=== PATIENT | female | born 1995 | race Caucasian/White ===

== ENCOUNTER → 2020-01-21 | Outpatient (CLI) | payer BC | LOC: ZCOL.LAB 07:21 | DX: J02.9 Acute pharyngitis, unspecified (principal); Z20.828 Contact with and (suspected) exposure to other viral communicable diseases ==

== ENCOUNTER 2023-07-14 17:00 | Inpatient (IN) | payer BC ==
[~2023-07-14] VITALS: Ht 160.1 cm; Wt 94.1 kg
[2023-07-14] VITALS (22 sets, daily range): BP systolic 91–136; BP diastolic 52–80; PULSE 58–104; TEMP 98.4
[2023-07-14] MEDS ORDERED: PRENATAL TABLET PO (17:22)
[2023-07-14] MEDS ORDERED: LEXAPRO 10MG10 MG PO (17:22)
[2023-07-14] MEDS ORDERED: KEPPRA750 MG PO (17:22)
--- NOTE | 2023-07-14 17:30 | NUR ---
PT AMBULATED ONTO THE UNIT WITH SPOUSE FOR LABOR CHECK.PT REPORTS CONTRACTIONS EVERY 3-5 MINUTES.PT DENIES LOF/VB.PT REPORTS POSITIVE MOVEMENT.POC REVIEWED WITH PT AND PT VERBALIZES UNDERSTANDING.
[2023-07-14 19:09] LABS: BASO % 0.4 % (0.0-2.0); EOS # 0.1 K/mm3 (0.0-0.7); EOS % 0.6 % (0.0-4.0); GRAN % 72.7 % (42.2-75.2); HEMOGLOBIN 11.7 g/dl (12.5-16.0); LYMPH # 1.6 K/mm3 (1.2-3.4); LYMPH % 19.6 % (20.0-51.0); MEAN CELL VOLUME 90 fl (80.0-100.0); MEAN CORPUSCULAR HEMOGLOBIN 31 pg (27-31); MEAN CORPUSCULAR HGB CONC 35 g/dl (33.0-37.0); MEAN PLATELET VOLUME 10.6 fl (7.4-10.4); MONO # 0.5 K/mm3 (0.1-0.6); MONO % 6.5 % (1.7-9.3); PLATELET COUNT 219 K/mm3 (130-400); RED BLOOD COUNT 3.75 M/mm3 (4.10-5.30); REDCELL DISTRIBUTION WIDTH-CV 13.4 % (11.5-14.5)
[2023-07-14 19:10] LABS: HEMATOCRIT 33.9 % (37.0-47.0)
[2023-07-14 19:29] LABS: ALBUMIN 3.1 gm/dL (3.5-5.0); BILIRUBIN,TOTAL 0.4 mg/dL (0.2-1.2); CALCIUM 9.4 mg/dL (8.4-10.2); CREATININE, serum 0.63 mg/dL (0.57-1.11); POTASSIUM 3.9 mmol/L (3.5-4.5); TOTAL PROTEIN 6.4 gm/dL (6.2-8.1)
--- NOTE | 2023-07-14 19:33 | NUR ---
192- PATIENT SITTING ON THE EDGE OF THE BED. DIFFICUTLY TRACING HEART RATE DUE TO MATERNAL POSITION. PULSE OX ON. MELYSSA MYLES AT BEDSIDE. EDUCATED PATIENT ON RISKS OF EPIDURAL. 1924- SIGNLE SHOT ADMINISTERED BY VIVIANA MYLES. 1932- PATIENT REPOSITIONED IN [facility]. PATIENT EDUCATED ON PLAN OF CARE. QUESTIONS INVITED AND ANSWERED.
[2023-07-15] VITALS (26 sets, daily range): BP systolic 92–132; BP diastolic 47–91; PULSE 71–106; TEMP 97.6–98.3
--- NOTE | 2023-07-15 00:15 | NUR ---
DIFFICULTY TRACING HEART TONES DUE TO MATERNAL POSITONING. MONITOR ADJUSTED.
--- NOTE | 2023-07-15 01:48 | NUR ---
0014- DR. GRIFFIN AT BEDSIDE. EDUCATES PATIENT ON FSE MONITOR DUE TO HAVING TROUBLE MONITORING WITH EXTERNAL MONITOR. PATIENT AGREES WITH PLACING FSE. 0016- FSE PLACED BY DR. GRIFFIN. SVE 0018- IUPC REMOVED BY DR. GRIFFIN. 0116- DR. GRIFFIN AT BEDSIDE. SVE . EDUCATED PATIENT ABOUT POSSIBLY GOING TO . PATIENT AGREES WITH HAVING A . 0118- DECISION TO GO TO . 0148- PATIENT TRANSFERRED TO OR FOR .
--- NOTE | 2023-07-15 15:30 | NUR ---
PATIENT NOT ABLE TO LIFT LEFT FROM KNEE UP OFF BED. PERICARE PROVIDED. EPIDURAL CATHETER REMOVED. PATIENT ENCOURAGED TO CONTINUE TO MOVE LEFT LEG TO HELP NUMBNESS WEAR OFF. WOULD LIKE TO GET PATIENT OUT OF BED TO REMOVE CATHETER IN THE NEXT HOUR. PATIENT STATES UNDERSTANDING. 1615 VS OBTAINED. PATIENT WITH FAMILY AT BEDSIDE. NURSING BABY AT THIS TIME. THIS RN EDUCATES WOULD REALLY LIKE TO GET PATIENT OUT OF BED BY 5PM. PATIENT STATES UNDERSTAIND.
[2023-07-16 04:40] VITALS: BP 117/78; PULSE 66; TEMP 98.1
--- NOTE | 2023-07-16 05:07 | NUR ---
PT INT REMOVED FROM LEFT HAND AT 0502 ON 07/16/23. TIP INTACT.
[2023-07-16] MEDS ORDERED: PERCOCET 325 MG1 TA2 PO (08:26)
[2023-07-16] MEDS ORDERED: MOTRIN 800800 MG/TAB PO (08:26)
[2023-07-16 16:30] VITALS: BP 115/70; PULSE 77; TEMP 98.3
[2023-07-16 22:05] VITALS: BP 113/69; PULSE 66; TEMP 97.6
[2023-07-17 07:30] VITALS: BP 115/67; PULSE 65; TEMP 98.2
== END 2023-07-17 11:15 | disposition home or self-care (01) | DRG 787 ==
LOC: LDRO 17:00 → LDR 17:04 → LDRO 17:57 → OB 17:58 → LDR 17:58 → OB 07-15 03:25
PROVIDERS: ADMIT Obstetrics & Gynecology
PROC: 10D00Z1 Extraction of Products of Conception, Low, Open Approach (ICD-10-PCS; principal; 2023-07-15)
DX: O36.63X0 Maternal care for excessive fetal growth, third trimester, not applicable or unspecified (principal); O99.354 Diseases of the nervous system complicating childbirth; Z3A.40 40 weeks gestation of pregnancy; O48.0 Post-term pregnancy; Z37.0 Single live birth; O99.214 Obesity complicating childbirth; O99.344 Other mental disorders complicating childbirth; F41.9 Anxiety disorder, unspecified; G40.909 Epilepsy, unspecified, not intractable, without status epilepticus; O76 Abnormality in fetal heart rate and rhythm complicating labor and delivery; O75.89 Other specified complications of labor and delivery; F32.A Depression, unspecified; Z23 Encounter for immunization
CPT/HCPCS: J0171; J0456; J0665; J0690; J1885; J2175; J2250; J2371; J2405; J2590; J2795; J7050; J7120